=== PATIENT | female | born 1955 | race Two or more races ===

== ENCOUNTER 2022-02-10 07:16 | Day surgery (SDC) | payer MEDICARE, MEDICAID ==
[2022-02-10] VITALS (8 sets, daily range): BP systolic 120–171; BP diastolic 62–89
[~2022-02-10] VITALS: Ht 157.5 cm; Wt 59.0 kg
[~2022-02-10 07:16] MED LIST: AML5T PO; ASPI-543 PO; CILO100T PO; FURO1TAB31 PO; INSU1INJ19 SC; LISI40TA11 PO; METO25TA93 PO; SIMV-13 PO
[2022-02-10] MEDS ORDERED: MIDAZOLAM HCL 2MG/2ML 2ml VIAL (1mg/ml) ONE (08:24)
[2022-02-10] MEDS ORDERED: ANGIOMAX 250 MG VIAL IV ONE (08:24)
[2022-02-10] MEDS ORDERED: SODIUM CHL 0.9% 50 ML ONE (08:24)
[2022-02-10] MEDS ORDERED: IODIXANOL 320MG/ML 100ML BTL IV ONE ×2 (08:25→09:03)
[2022-02-10] MEDS ORDERED: fentaNYL CITRATE 100 MCG/2 ML VL ONE (08:28)
[2022-02-10] MEDS ORDERED: LIDOCAINE 2%HCL (LOCAL ANESTH.) INJ 20ML MDV ONE (08:42)
[2022-02-10] MEDS ORDERED: HYDROmorphone HCL 2 MG/ML VL/or syr ONE (09:35)
[2022-02-10] MEDS ORDERED: CLOPIDOGREL BISULFATE 75 MG TAB ONE (09:41)
[2022-02-10] MEDS ORDERED: INSU1INJ19 SC (10:08)
[2022-02-10] MEDS ORDERED: FENO160T8 PO (10:08)
[2022-02-10] MEDS ORDERED: OME20T PO (10:08)
[2022-02-10] MEDS ORDERED: CHOL1TAB42 PO (10:08)
[2022-02-10] MEDS ORDERED: FINE10TA PO (10:54)
[2022-02-11] MEDS ORDERED: CLOPIDOGREL BISULFATE 75 MG TAB PO SCH (10:00)
== END 2022-02-10 12:20 | disposition home or self-care (01) ==
LOC: CATH 07:16
PROVIDERS: ATTEND Internal Medicine
DX: E11.51 Type 2 diabetes mellitus with diabetic peripheral angiopathy without gangrene (principal); I70.203 Unspecified atherosclerosis of native arteries of extremities, bilateral legs; I10 Essential (primary) hypertension; I65.29 Occlusion and stenosis of unspecified carotid artery; E78.5 Hyperlipidemia, unspecified; Z79.899 Other long term (current) drug therapy; Z79.84 Long term (current) use of oral hypoglycemic drugs; Z95.1 Presence of aortocoronary bypass graft; Z20.822 Contact with and (suspected) exposure to COVID-19
CPT/HCPCS: 37224; C1725; C1760; C1769; C1894; J0583; J1170; J1644; J2250; J3010; J7030; Q9967; U0003; 99152; 99153